=== PATIENT | male | born 1985 | race Caucasian/White ===

== ENCOUNTER 2016-11-09 15:27 | Emergency (ER) | payer MEDICAID ==
[~2016-11-09] VITALS: Ht 185.4 cm; Wt 93.7 kg
[2016-11-09 15:29] VITALS: BP 145/95
[2016-11-09 16:21] LABS: BLOOD UREA NITROGEN 15 mg/dL (7-18)
== END 2016-11-09 16:51 | disposition home or self-care (01) ==
LOC: ED 16:45
DX: I87.2 Venous insufficiency (chronic) (peripheral) (principal); I83.812 Varicose veins of left lower extremity with pain
CPT/HCPCS: 36415; 80048; 82040; 85025; 99285